=== PATIENT | female | born 1950 | race Hispanic/Latino ===

== ENCOUNTER 2016-11-21 09:59 | Day surgery (SDC) | payer MEDICARE ==
[2016-09-16 09:25] VITALS: BMI 32.9
--- NOTE | 2016-11-21 12:00 | CP.SDSHP ---
Same Day Surgery H & P - History Proposed Procedure: US right thoracentesis. Pre-Op Diagnosis: Pleural effusion - Allergies Allergies: Allergies No Known Allergies Allergy (Verified 09/16/16 09:25) - Physical Exam Vital Signs: Vital Signs 11/21/16 10:22 Temperature 97.5 F L Pulse Rate 64 Respiratory 20 Rate Blood Pressure 113/68 O2 Sat by Pulse 98 Oximetry Mental Status: Alert & Oriented x3 Neuro: WNL Heart: WNL - Impression Impression: Pt with pulmonary nodules and a right pleural effusion. Plan US guided right thoracentesis. Pt. Evaluated Today:Candidate for Anesthesia & Procedure: No - Date & Time Date: 11/21/16 Time: 11:45 Short Stay Discharge - Short Stay Discharge Admitting Diagnosis/Reason for Visit: PLURAL DEFF NODULE Disposition: HOME/ ROUTINE
--- NOTE | 2016-11-21 12:02 | PCM.SURG1 ---
Surgeon's Initial Post Op Note - Surgeon's Notes Surgeon: Toro Zambrano MD Methods Engineer: NONE Type of Anesthesia: Local Pre-Operative Diagnosis: Right pleural effusion Operative Findings: US showed large right pleural effusion. Post-Operative Diagnosis: Right pleural effusion Operation Performed: US guided right thoracentesis. Specimen/Specimens Removed: 950 cc of yellow fluid Estimated Blood Loss: EBL {In ML}: 0 Blood Products Given: N/A Drains Used: No Drains Post-Op Condition: Fair Date of Surgery/Procedure: 11/21/16 Time of Surgery/Procedure: 12:00
[2016-11-21 12:21] LABS: BODY FLUID TYPE PLEURAL/THORACENTESI
[2016-11-21 12:53] VITALS: BP 113/60; PULSE 63; RESP 18; TEMP 96.9; O2SAT 100
[2016-11-21 13:08] LABS: BF GROSS APPEARANCE SL CLOUDY (CLEAR)
[2016-11-21 13:09] LABS: BODY FLUID TOTAL COUNT 100 (0-0)
--- NOTE | 2016-11-21 13:43 | US ---
PROCEDURE: Date of procedure: 11/21/16 Procedure: 1. Ultrasound-guided Right thoracentesis, CPT 90504 Medications: 1% Lidocaine HISTORY: Right pleural effusion, shortness of breath TECHNIQUE: Following informed consent ,the Patients' right chest was marked. Procedure time-out was called, and the patient was placed in the sitting position and limited ultrasound showed a large right effusion. The patient's right back was prepped and draped in the usual sterile fashion. After the skin was anesthetized with lidocaine, a drainage catheter was advanced under ultrasound guidance into the pleural space. Ultrasound-guided thoracentesis was performed. A total of 900 cubic centimeters of straw-colored fluid removed without complication. Fluid was sent for cytology. A Xeroform dressing was applied. IMPRESSION: Ultrasound guided Right thoracentesis. There were no immediate complications.
--- NOTE | 2016-11-21 13:46 | RAD ---
PROCEDURE: CHEST RADIOGRAPH, 1 VIEW HISTORY: Status post right thoracentesis. COMPARISON: None available. FINDINGS: LUNGS: Improved aeration of the lungs. PLEURA: No pneumothorax. No pleural effusion. Minor right fissural thickening CARDIOVASCULAR: Normal. OSSEOUS STRUCTURES: No significant abnormalities. VISUALIZED UPPER ABDOMEN: Normal. OTHER FINDINGS: None. IMPRESSION: Improved aeration of the right lung. No residual pleural effusion. No pneumothorax.
== END 2016-11-21 12:54 | disposition home or self-care (01) ==
LOC: C.SPRAD 09:59
PROVIDERS: ATTEND Radiology Vascular & Interventional Radiology
DX: J90 Pleural effusion, not elsewhere classified (principal)